=== PATIENT | male | born 1950 | race Caucasian/White ===

== ENCOUNTER 2019-03-22 11:57 | Emergency (ER) | payer MEDICARE ==
[~2019-03-22] VITALS: Ht 170.2 cm; Wt 59.0 kg
[2019-03-22] MEDS ORDERED: VITAMIN C500 M1 PO (12:17)
[2019-03-22] MEDS ORDERED: BISA5EC PO (12:17)
[2019-03-22] MEDS ORDERED: LO-DOSE ASPIRIN81 MG PO (12:17)
[2019-03-22] MEDS ORDERED: REFRESH OPTIVE10 ML BOTHEYES (12:18)
[2019-03-22] MEDS ORDERED: Citalopram HBr40 MG PT (12:18)
[2019-03-22] MEDS ORDERED: DOCU100 PO (12:19)
[2019-03-22] MEDS ORDERED: DIGOX125 MCG PO (12:19)
[2019-03-22] MEDS ORDERED: FURO40 PO (12:20)
[2019-03-22] MEDS ORDERED: FERROUS SU220 MG/51 PO (12:20)
[2019-03-22] MEDS ORDERED: METO25 PO (12:21)
[2019-03-22] MEDS ORDERED: METH10 PO (12:21)
[2019-03-22] MEDS ORDERED: POTCHL10ER PO (12:22)
[2019-03-22] MEDS ORDERED: NARCAN4 MG INH (12:22)
[2019-03-22] MEDS ORDERED: Simvastatin20 MG PO (12:23)
[2019-03-22] MEDS ORDERED: Zantac150 MG PO (12:23)
[2019-03-22] MEDS ORDERED: TRAZ50 PO (12:24)
[2019-03-22] MEDS ORDERED: SPIR25 PO (12:24)
[2019-03-25] MEDS ORDERED: LIDOCAINE HCL 2% PO (04:59)
== END 2019-03-22 16:07 | disposition home or self-care (01) ==
LOC: ER 11:57
DX: Z43.0 Encounter for attention to tracheostomy (principal); K08.89 Other specified disorders of teeth and supporting structures; G89.29 Other chronic pain; I48.91 Unspecified atrial fibrillation; I50.9 Heart failure, unspecified; F17.200 Nicotine dependence, unspecified, uncomplicated; D64.9 Anemia, unspecified; Z88.8 Allergy status to other drugs, medicaments and biological substances; Z79.82 Long term (current) use of aspirin; Z79.899 Other long term (current) drug therapy
CPT/HCPCS: 31720; 71045; 99285-25

== ENCOUNTER 2019-03-24 22:26 | Inpatient (IN) | payer MEDICARE ==
[~2019-03-24] VITALS: Ht 170.2 cm; Wt 61.0 kg
[~2019-03-24 22:26] MED LIST: BISA5EC PO; Citalopram HBr40 MG PT; DIGOX125 MCG PO; DOCU100 PO; FERROUS SU220 MG/51 PO; FURO40 PO; LO-DOSE ASPIRIN81 MG PO; METH10 PO; METO25 PO; NARCAN4 MG INH; POTCHL10ER PO; REFRESH OPTIVE10 ML BOTHEYES; SPIR25 PO; Simvastatin20 MG PO; TRAZ50 PO; VITAMIN C500 M1 PO; Zantac150 MG PO
[2019-03-24 23:35] LABS: BASOPHILS ABSOLUTE AUTO 0.05 K/mm3 (0.00-0.23); BASOPHILS PERCENT AUTO 1 % (0-2); EOSINOPHILS ABSOLUTE AUTO 0.15 K/mm3 (0.00-0.68); EOSINOPHILS PERCENT AUTO 2 % (0-6); Hematocrit 27.6 % (37.0-53.0); Hemoglobin 8.5 g/dL (13.5-17.5); IMMATURE GRAN ABSOLUTE AUTO 0.03 K/mm3 (0.00-0.10); IMMATURE GRAN PERCENT AUTO 0 % (0-1); LYMPHOCYTES ABSOLUTE AUTO 1.04 K/mm3 (0.84-5.20); LYMPHOCYTES PERCENT AUTO 14 % (21-46); MONOCYTES ABSOLUTE AUTO 0.77 K/mm3 (0.16-1.47); MONOCYTES PERCENT AUTO 10 % (4-13); Mean Corpuscular HGB 25.9 pg (26.0-34.0); Mean Corpuscular HGB Conc 30.8 g/dL (31.5-36.5); Mean Corpuscular Volume 84 fL (80-100); Mean Platelet Volume 9.6 fL (9.1-12.4); NEUTROPHILS PERCENT AUTO 73 % (41-73); Platelet Count 193 K/mm3 (150-400); RDW Coefficient Variation 17.1 % (11.7-14.2); RDW Standard Deviation 52.9 fL (35.1-46.3); Red Blood Cell Count 3.28 M/mm3 (4.30-5.90); White Blood Cell Count 7.54 K/mm3 (4.00-11.30)
[2019-03-24 23:54] LABS: Alanine Aminotransfer (ALT/SGP 12 U/L (12-78); Albumin, Blood 2.9 g/dL (3.4-5.0); Albumin/Globulin Ratio 0.6 (0.8-1.8); Alk Phos 76 U/L (50-136); Anion Gap 7 mmol/L (6-16); Aspartate Aminotrans (AST/SGOT 17 U/L (12-37); Bilirubin, Total 0.4 mg/dL (0.1-1.0); Blood Urea Nitrogen 21 mg/dL (8-24); CO2, Blood 26 mmol/L (21-32); Calcium, Blood 8.4 mg/dL (8.5-10.1); Chloride, Blood 102 mmol/L (98-108); Creatinine, Blood 0.96 mg/dL (0.60-1.20); Globulin, Blood 4.6 g/dL (2.2-4.0); Glomerular Filtration Rate >60 (60-); Glucose, Blood 113 mg/dL (70-99); Potassium, Blood 3.8 mmol/L (3.5-5.5); Sodium, Blood 135 mmol/L (136-145); Total Protein, Blood 7.5 g/dL (6.4-8.2); Troponin I <0.015 ng/mL (0.000-0.040)
[2019-03-25 00:05] LABS: Digoxin (Lanoxin) 0.55 ug/mL (0.80-2.00)
--- NOTE | 2019-03-25 03:18 | NUR ---
ADMIT RECEIVED FROM ER VIA [facility]. AWAKE AND ALERT. ANXIOUS AND RESTLESS. ORIENTED. MOVES SELF FROM GURNEY TO BED. MONITOR SHOWS AFIB, RATE 70s. BP STABLE. RA SATS 97-98%. RESPIRATIONS LABORED WITH EXERTION AND PT C/O FEELING SOB. RESPIRATIONS ARE EVEN AND UNLABORED WHEN NOT EXERTING OR AGITATED. TRACH NOTED. PT SX TRACH HIMSELF- THIN CLEAR SPUTUM WITH SMALL AMOUNT OF BLOOD STREAKING NOTED. PEG TUBE NOTED, CLAMPED. SITE CLEANED AND NEW DRSG APPLIED. NPO FOR NOW. SCATTERED SCABBED AREAS NOTED ON UPPER BACK- PT STATES D/T HAVING ITCHY SKIN AND SCRATCHING. VOIDS SMALL AMOUNTS OF URINE WITHOUT DIFFICULTY. C/O DRY MOUTH AND BEING HUNGRY. ALSO C/O LEFT JAW PAIN. SEE ADMIT ASSESSMENT FOR FULL ASSESSMENT.
[2019-03-25] MEDS ORDERED: LIDOCAINE HCL30 ML MM (04:59)
--- NOTE | 2019-03-25 05:00 | NUR ---
PAIN PT C/O MOUTH AND JAW PAIN AND IS REQUESTING "MY LIDOCAINE." DR. PEREZ NOTIFIED OF PAIN- NEW ORDERS RECEIVED.
--- NOTE | 2019-03-25 06:57 | NUR ---
SHIFT SUMMARY NO ACUTE CHANGES. SLEEPING INTERMITTENTLY. ROUSES EASILY TO STIMULI. MEDICATED WITH 5CC VISCOUS LIDOCAINE SWISH AND SPIT FOR C/O MOUTH PAIN. VSS. VOIDING WITHOUT DIFFICULTY. OCCASIONALLY SUCTIONS TRACH HIMSELF. REMAINS ON RA. WILL REPORT TO DAY SHIFT RN WHEN AVAILOABLE.
--- NOTE | 2019-03-25 07:48 | NUR ---
ASSUMED CARE OF PT THIS AM PT. AWAKENS EASILY TO VERBAL STIMULI, CURRENTLY ON RA AND SALINE LOCKED. PT. REPOSITIONS SELF IN BED WITH OUT ASSISTANCE. PT. CURRENTLY HAS INNER CANNULA OUT AND IN A KLEENEX, PT PUTS INNER CANNULA BACK IN PART WAY TO ASSIST WITH TALKING. REPORTS THAT HE DOESNT REMEMBER WHEN TRACH WAS PLACED BUT THAT IT WAS A LONG TIME AGO. PT. REPORTS HE CUTS HIS TRACHS AT HOME BECAUSE THEY DONT FIT. TRACH CARE DONE THIS AM. PT.SUCTIONING SELF NEEDED. PT REPORTS PAIN IN MOUTH REPORTS THAT HE USES LIDOCAINE SWISH AND SWALLOW AT HOME FOR PAIN RELIEF. NO SIGNS OF SWELLING NOTED AT THIS TIME. PT REPORTS FEELING BETTER THIS AM. PT. HAS PEG TUBE IN PLACE, REPORTS HE DOES NOT USE IT BUT "PROBABLY SHOULD", REPORTS HE EATS AND DRINKS PO AT HOME. PT VSS THIS AM.
--- NOTE | 2019-03-25 10:24 | NUR ---
DR. NEWBY CONSULTED SPOKE TO DR. NEWBY ABOUT PT. CALL TO [facility] TO [facility] IF [facility] HAVE [facility]PL[facility] TRACH FOR PT. FOR TRACH TO BE CHANGED.
--- NOTE | 2019-03-25 11:10 | NUR ---
SPOKE WITH [facility] RT WELL DR. NEWBY AND DR. CHICAS PER RT AT [facility] THEY DO NOT HAVE PLACEMENT TRACHS AT THEIR FACILITY AND WOULD RECOMMEND THE PT BE TRANSFERRED NORTH TO [facility] IN [place] FOR FURTHER RADIATION TREATMENT AND TRACH REPLACEMENT. DR. NEWBY AWARE. DR. CHICAS TO INITIATE TRANSFER TO [place]. PT REMAINS STABLE AND CONTINUES TO SUCTION HIMSELF AND MAINTAIN SPO2 ON RA.
--- NOTE | 2019-03-25 11:45 | NUR ---
REPORT TO PCU NURSE PT AND ALL BELONGINGS TO BE TRASNFERRED WITH PT.
--- NOTE | 2019-03-25 11:48 | NUR ---
report recieved from MELANIE Llanos. awaiting pt transfer.
== END 2019-03-25 17:04 | disposition home or self-care (01) | DRG 159 ==
LOC: ER 22:26 → ICUW 03-25 01:58 → ICUE 03-25 01:58 → PCU 03-25 11:39
PROVIDERS: Emergency Medicine; ADMIT Internal Medicine
DX: K12.2 Cellulitis and abscess of mouth (principal); I48.91 Unspecified atrial fibrillation; F32.9 Major depressive disorder, single episode, unspecified; D64.9 Anemia, unspecified; I11.0 Hypertensive heart disease with heart failure; I50.9 Heart failure, unspecified; Z79.01 Long term (current) use of anticoagulants; Z85.01 Personal history of malignant neoplasm of esophagus; Z93.0 Tracheostomy status; Z79.82 Long term (current) use of aspirin
CPT/HCPCS: 31720; 36415; 70491; 71045; 71260; 80053; 80162; 84145; 84484; 85025; 93005; 93010; 94640; 96361-59; 96365-59; 96367-59; 96372-59; 96375-59; 99285-25; C9113; J0171; J1650; J2543; J2930; J3370; J7030; Q9967

== ENCOUNTER 2019-03-27 16:12 | Observation (INO) | payer MEDICARE ==
[~2019-03-27] VITALS: Ht 170.2 cm; Wt 59.5 kg
[~2019-03-27 16:12] MED LIST changes: +LIDOCAINE HCL30 ML MM
[2019-03-27 16:35] LABS: BASOPHILS ABSOLUTE AUTO 0.04 K/mm3 (0.00-0.23); BASOPHILS PERCENT AUTO 0 % (0-2); EOSINOPHILS ABSOLUTE AUTO 0.14 K/mm3 (0.00-0.68); EOSINOPHILS PERCENT AUTO 1 % (0-6); Hematocrit 33.2 % (37.0-53.0); Hemoglobin 9.5 g/dL (13.5-17.5); IMMATURE GRAN ABSOLUTE AUTO 0.07 K/mm3 (0.00-0.10); IMMATURE GRAN PERCENT AUTO 1 % (0-1); LYMPHOCYTES ABSOLUTE AUTO 2.29 K/mm3 (0.84-5.20); LYMPHOCYTES PERCENT AUTO 18 % (21-46); MONOCYTES ABSOLUTE AUTO 1.35 K/mm3 (0.16-1.47); MONOCYTES PERCENT AUTO 11 % (4-13); Mean Corpuscular HGB Conc 28.6 g/dL (31.5-36.5); Mean Platelet Volume 9.9 fL (9.1-12.4); NEUTROPHILS ABSOLUTE AUTO 8.71 K/mm3 (1.96-9.15); NEUTROPHILS PERCENT AUTO 69 % (41-73); Platelet Count 309 K/mm3 (150-400); RDW Coefficient Variation 17.1 % (11.7-14.2); RDW Standard Deviation 57.3 fL (35.1-46.3); Red Blood Cell Count 3.65 M/mm3 (4.30-5.90)
[2019-03-27 16:37] LABS: Mean Corpuscular Volume 91 fL (80-100)
[2019-03-27 16:50] LABS: Alanine Aminotransfer (ALT/SGP 16 U/L (12-78); Albumin, Blood 3.3 g/dL (3.4-5.0); Albumin/Globulin Ratio 0.7 (0.8-1.8); Alk Phos 79 U/L (50-136); Anion Gap 15 mmol/L (6-16); Aspartate Aminotrans (AST/SGOT 20 U/L (12-37); Bilirubin, Total 0.5 mg/dL (0.1-1.0); Blood Urea Nitrogen 23 mg/dL (8-24); Bun/Creatinine Ratio 20.7 (12.0-20.0); CO2, Blood 20 mmol/L (21-32); Chloride, Blood 101 mmol/L (98-108); Creatinine, Blood 1.11 mg/dL (0.60-1.20); Globulin, Blood 4.8 g/dL (2.2-4.0); Glomerular Filtration Rate >60 (60-); Glucose, Blood 175 mg/dL (70-99); Potassium, Blood 4.9 mmol/L (3.5-5.5); Sodium, Blood 136 mmol/L (136-145); Total Protein, Blood 8.1 g/dL (6.4-8.2); Troponin I 0.018 ng/mL (0.000-0.040)
--- NOTE | 2019-03-28 03:29 | NUR ---
ED ADMIT AT 2100. OOB IN ROOM AND INSISTS ON FOOD. PRESENTS W/O LABORED BREATHING.BUT CONSTANT NEED TO SX SELF W/ STERILE SX CATH PROVIDED. VS WNL AND IVF STARTED. REPORTS PAIN IN MOUTH AND MD ORDERS LIDO MOUTH CARE. .REVIEWED W/ MD ON FOR NOC THAT DAY MD ORDERED FOOD FOR BFK AND MANY PILLS AND CONCERNED ABOUT ADMISSION DX AND OBSTRUCTION DIFFICULTIES X2 OVER LAST 2 DAYS DUE TO POSSIBLY EATING PER NON COMPLIANCE. MD AGREES AMD PT VERY UPSET HE CAN NOT EAT. SLEEPER AND PAIN MED GIVEN PER G TUBE AFTER COMPLIANCE AND PLACEMENT CHECKED. NO ADVERSE ISSUES NOTED W/ G TUBE AND REVIEWED W/ PT THAT MD IN AM WILL MAKE EVAL AND DECISION. AGREES AND SATS WNL ON RA AND PASSEY AUBREE ON AND OFF PER TALKING NEEDS . THEN OFF TO SLEEP W/ NO SUPPLIMENTAL O2 OR MIST TO TRACH. LEFT ON CONT OXIMETER AND NO TELE ORDERED. STABLE WHILE SLEEPING.COMFORTABLE PAIN CONTROL .STAND TO VOID. G TUBE DSG NOT REMOVED
[2019-03-28 04:23] LABS: BASOPHILS ABSOLUTE AUTO 0.02 K/mm3 (0.00-0.23); BASOPHILS PERCENT AUTO 0 % (0-2); EOSINOPHILS ABSOLUTE AUTO 0.03 K/mm3 (0.00-0.68); EOSINOPHILS PERCENT AUTO 1 % (0-6); Hematocrit 27.4 % (37.0-53.0); Hemoglobin 8.3 g/dL (13.5-17.5); IMMATURE GRAN ABSOLUTE AUTO 0.01 K/mm3 (0.00-0.10); IMMATURE GRAN PERCENT AUTO 0 % (0-1); LYMPHOCYTES ABSOLUTE AUTO 0.64 K/mm3 (0.84-5.20); LYMPHOCYTES PERCENT AUTO 12 % (21-46); MONOCYTES ABSOLUTE AUTO 0.61 K/mm3 (0.16-1.47); MONOCYTES PERCENT AUTO 11 % (4-13); Mean Corpuscular HGB 25.8 pg (26.0-34.0); Mean Corpuscular HGB Conc 30.3 g/dL (31.5-36.5); Mean Platelet Volume 9.6 fL (9.1-12.4); NEUTROPHILS ABSOLUTE AUTO 4.13 K/mm3 (1.96-9.15); NEUTROPHILS PERCENT AUTO 76 % (41-73); Platelet Count 154 K/mm3 (150-400); RDW Coefficient Variation 17.1 % (11.7-14.2); RDW Standard Deviation 53.2 fL (35.1-46.3); Red Blood Cell Count 3.22 M/mm3 (4.30-5.90); White Blood Cell Count 5.44 K/mm3 (4.00-11.30)
[2019-03-28 04:25] LABS: Mean Corpuscular Volume 85 fL (80-100)
[2019-03-28 04:48] LABS: Anion Gap 5 mmol/L (6-16); Blood Urea Nitrogen 24 mg/dL (8-24); CO2, Blood 28 mmol/L (21-32); Calcium, Blood 8.1 mg/dL (8.5-10.1); Chloride, Blood 106 mmol/L (98-108); Creatinine, Blood 0.86 mg/dL (0.60-1.20); Glomerular Filtration Rate >60 (60-); Glucose, Blood 82 mg/dL (70-99); Potassium, Blood 4.1 mmol/L (3.5-5.5); Sodium, Blood 139 mmol/L (136-145)
--- NOTE | 2019-03-28 06:22 | NUR ---
SHIFT SUMMARY. SLEPT ALL NOC W/ STAND ONCE TO VOID. RA ALL NOC AND 97% NOT ON TELE BUT HR 60'S. BP WNL. 100 ML H20 GIVEN W/ MEDS VIA G TUBE POST ADMIT.NO ACUTE ISSUES REPORTED.
--- NOTE | 2019-03-28 14:48 | NUR ---
HE HAS BEEN DISCHARGED TO HOME WITH BELONGINGS AND INSTRUCTIONS. HE ALSO RECEIVED INSTRUCTION FROM THE RT ON HIS TRACH. WE GAVE HIM A SHIRT TO WEAR HIS WAS CUT OFF ON ADMISSION. [facility].
== END 2019-03-28 14:35 | disposition home or self-care (01) ==
LOC: ER 16:12 → PCU 16:13
PROVIDERS: Physician Assistant; ADMIT Internal Medicine
DX: Q32.1 Other congenital malformations of trachea (principal); C15.9 Malignant neoplasm of esophagus, unspecified; R40.20 Unspecified coma; I48.91 Unspecified atrial fibrillation; F32.9 Major depressive disorder, single episode, unspecified; I10 Essential (primary) hypertension; Z79.82 Long term (current) use of aspirin; Z79.899 Other long term (current) drug therapy; Z85.118 Personal history of other malignant neoplasm of bronchus and lung; Z87.891 Personal history of nicotine dependence
CPT/HCPCS: 31720; 36415; 71045; 80048; 80053; 83605; 84484; 85025; 93005; 93010; 99285-25; J1644; J7030